=== PATIENT | male | born 1995 ===

== ENCOUNTER 2020-09-10 21:31 | Inpatient (IN) | payer MEDICAID, OTHER ==
[~2020-09-10] VITALS: Ht 185.4 cm; Wt 81.8 kg
[2020-09-10] MEDS ORDERED: ZOLPIDEM TARTRATE 10 MG TABLET PO PRN (23:45)
[2020-09-11 00:23] LABS: COVID AG,FIA SOURCE NASOPHARYNGEAL
[2020-09-11] MEDS ORDERED: LORazepam 2 MG/ML VIAL ONE (00:29)
[2020-09-11] MEDS ORDERED: DiphenhydrAMINE HCL 50 MG/ML VIAL ONE (00:30)
[2020-09-11] MEDS ORDERED: HALOPERIDOL LACTATE 5 MG/ML VIAL ONE (00:30)
[2020-09-11] MEDS ORDERED: LORazepam 2 MG/ML VIAL IM ONE (01:15)
[2020-09-11] MEDS ORDERED: DiphenhydrAMINE HCL 50 MG/ML VIAL IM ONE (01:15)
[2020-09-11] MEDS ORDERED: HALOPERIDOL LACTATE 5 MG/ML VIAL IM ONE (01:15)
[2020-09-11 02:17] LABS: BASOPHILS % (AUTO) 0.6 % (0.0-2.0); EOSINOPHILS % (AUTO) 1.9 % (1.0-6.0); HEMATOCRIT 39.8 % (41-53); HEMOGLOBIN 13.5 g/dL (13.5-17.5); LYMPHOCYTES # (AUTO) 1.7 K/uL (1.0-4.8); LYMPHOCYTES % (AUTO) 25.9 % (22.0-44.0); MEAN CORPUSCULAR HEMOGLOBIN 30.1 pg (26.0-34.0); MEAN CORPUSCULAR VOLUME 89 fL (80-100); MONOCYTES # (AUTO) 0.7 K/uL (0.1-1.0); MONOCYTES % (AUTO) 10.5 % (2.0-9.0); NEUTROPHILS % (AUTO) 61.1 % (40.0-70.0); PLATELET COUNT (AUTO) 208 K/uL (150-450); RED BLOOD CELL COUNT(AUTO) 4.49 MIL/uL (4.50-5.90)
[2020-09-11 02:32] LABS: ANION GAP 12 mmol/L (8-16); CALCIUM, TOTAL 8.6 mg/dL (8.8-10.5); CARBON DIOXIDE 25 mmol/L (22-29); CHLORIDE 100 mmol/L (98-107); CREATININE 0.84 mg/dL (0.60-1.30); GLOMERULAR FILTR. RATE CALC > 60 mL/min (>60); GLUCOSE,RANDOM 93 mg/dL (70-110); POTASSIUM 3.1 mmol/L (3.5-5.1); SODIUM SERUM 137 mmol/L (136-145); UREA NITROGEN, BLOOD 22 mg/dL (7-18)
[2020-09-11 02:38] LABS: ALANINE AMINOTRANSFERASE 30 U/L (12-78); ALBUMIN 3.8 g/dL (3.4-5.0); ALKALINE PHOSPHATASE 62 U/L (46-116); ASPARTATE AMINOTRANSFERASE 30 U/L (15-37); BILIRUBIN,TOTAL 1.6 mg/dL (0.1-1.0); CHOL/HDL RATIO 2.3 (4.2-7.3); CHOLESTEROL 136 mg/dL (131-200); HDL CHOLESTEROL 60 mg/dL (40-60); LDL CHOL (CALC.) 71 mg/dL (0-130); TOTAL PROTEIN, SERUM 6.6 g/dL (6.4-8.2); TRIGLYCERIDES 25 mg/dL (15-150)
[2020-09-11] MEDS ORDERED: POTASSIUM CHLORIDE 20 MEQ ER TABLET PO ONE (03:45)
[2020-09-11 05:57] VITALS: BP 126/72
[2020-09-11] MEDS ORDERED: MAG HYDROX/AL HYDROX/SIMETH ES 30 ML SUSPENSION UDCUP PO PRN (08:15)
[2020-09-11] MEDS ORDERED: LOPERAMIDE HCL 2 MG CAPSULE PO PRN (08:15)
[2020-09-11] MEDS ORDERED: ACETAMINOPHEN 325 MG TABLET PO PRN (08:15)
[2020-09-11] MEDS ORDERED: DOCUSATE SODIUM 100 MG CAPSULE PO PRN (08:15)
[2020-09-11] MEDS ORDERED: GuaiFENesin/D-METHORPHAN [SUGAR-FREE] 200-20MG/10 ML SYRUP UDCUP PO PRN (08:15)
[2020-09-11] MEDS ORDERED: MAGNESIUM HYDROXIDE SUSPENSION 30 ML UDCUP PO PRN (08:15)
[2020-09-11] MEDS ORDERED: CloNIDine HCL 0.1 MG TABLET PO PRN (08:15)
[2020-09-11] MEDS ORDERED: ONDANSETRON HCL 4 MG TABLET PO PRN (08:15)
[2020-09-11] MEDS ORDERED: ALBUTEROL SULFATE HFA 90 MCG/PUFF 8 GM INHALER IH PRN (08:15)
[2020-09-11] MEDS ORDERED: IBUPROFEN 400 MG TABLET PO PRN (08:15)
[2020-09-11] MEDS ORDERED: PETROLATUM,WHITE 28 GM JELLY TP PRN (08:15)
[2020-09-11] MEDS ORDERED: NICOTINE 14 MG/24 HOUR PATCH TD PRN (08:15)
[2020-09-11 08:49] VITALS: BP 117/81
[2020-09-11] MEDS: LORazepam 2 MG TABLET PO PRN ×2 (08:52→20:45)
[2020-09-11] MEDS: QUEtiapine FUMARATE 100 MG TABLET PO PRN (08:52)
[2020-09-11 16:40] VITALS: BP 117/66
[2020-09-11] MEDS: OLANZapine 5 MG TABLET PO SCH (20:45)
[2020-09-12 05:44] VITALS: BP 118/70
[2020-09-12 08:37] VITALS: BP 126/80
[2020-09-12] MEDS: OLANZapine 5 MG TABLET PO SCH ×2 (09:10→20:30)
[2020-09-12 16:24] VITALS: BP 108/64
[2020-09-12] MEDS: LORazepam 2 MG TABLET PO PRN ×2 (18:01→20:30)
[2020-09-13 00:28] VITALS: BP 110/62
[2020-09-13] MEDS: LORazepam 2 MG TABLET PO PRN (08:30)
[2020-09-13] MEDS: OLANZapine 5 MG TABLET PO SCH ×2 (08:53→21:29)
[2020-09-13 09:01] VITALS: BP 131/68
[2020-09-13 16:25] VITALS: BP 110/65
[2020-09-14 01:39] VITALS: BP 121/90
[2020-09-14 08:13] VITALS: BP 134/79
[2020-09-14] MEDS: OLANZapine 5 MG TABLET PO SCH ×2 (09:34→20:25)
[2020-09-14] MEDS: LORazepam 2 MG TABLET PO PRN ×2 (09:34→16:53)
[2020-09-14] MEDS: QUEtiapine FUMARATE 100 MG TABLET PO PRN (09:34)
[2020-09-14 16:23] VITALS: BP 118/71
[2020-09-15 03:23] VITALS: BP 121/80
[2020-09-15] MEDS: LORazepam 2 MG TABLET PO PRN ×3 (08:50→17:15)
[2020-09-15] MEDS: OLANZapine 5 MG TABLET PO SCH ×2 (08:50→20:50)
[2020-09-15 09:05] VITALS: BP 116/52
[2020-09-15] MEDS: QUEtiapine FUMARATE 100 MG TABLET PO PRN ×2 (13:14→17:15)
[2020-09-15 16:23] VITALS: BP 122/69
[2020-09-16 01:35] VITALS: BP 120/65
[2020-09-16] MEDS: LORazepam 2 MG TABLET PO PRN (08:27)
[2020-09-16] MEDS: OLANZapine 5 MG TABLET PO SCH (08:27)
[2020-09-16 08:41] VITALS: BP 138/89
[2020-09-16] MEDS ORDERED: OLAN5TAB52 PO (15:21)
== END 2020-09-16 16:45 | disposition home or self-care (01) | DRG 751 ==
LOC: EMS 21:31 → UNDOADMIN 23:30 → B3A 23:30
DX: F29 Unspecified psychosis not due to a substance or known physiological condition (principal); F25.9 Schizoaffective disorder, unspecified; R17 Unspecified jaundice; E87.6 Hypokalemia; F15.10 Other stimulant abuse, uncomplicated; F17.210 Nicotine dependence, cigarettes, uncomplicated; Z20.822 Contact with and (suspected) exposure to COVID-19; F41.9 Anxiety disorder, unspecified; R03.0 Elevated blood-pressure reading, without diagnosis of hypertension; Z78.1 Physical restraint status; Z91.018 Allergy to other foods
CPT/HCPCS: 80053; 80061; 84132; 85025; 99291; G0480; J1200; J1630; J2060